=== PATIENT | female | born 1975 | race American Indian/Alaskan Native ===

== ENCOUNTER 2016-11-10 06:53 | Emergency (ER) | payer SELFPAY ==
[2016-11-10 07:29] VITALS: BP 128/96
[2016-11-10 07:46] LABS: Basophils % (Auto) 1.1 % (0.0-1.8); Eosinophils % (Auto) 2.2 % (0.0-4.3); Hematocrit 32.5 % (30.3-42.9); Hemoglobin 10.2 gm/dl (10.1-14.3); Mean Corpuscular HGB Conc 31 % (30-34); Platelet Count 290 K/mm3 (140-440); Red Blood Count 4.72 M/mm3 (3.65-5.03)
[2016-11-10 07:49] LABS: Mean Corpuscular Hemoglobin 22 pg (28-32); Mean Corpuscular Volume 69 fl (79-97); Red Cell Distribution Width 20.1 % (13.2-15.2)
[2016-11-10 08:02] LABS: Anion Gap 19 mmol/L; Blood Urea Nitrogen 10 mg/dL (7-17); Calcium 8.8 mg/dL (8.4-10.2); Carbon Dioxide 22 mmol/L (22-30); Chloride 102.6 mmol/L (98-107); Glucose 93 mg/dL (65-100); Potassium 3.4 mmol/L (3.6-5.0); Sodium 140 mmol/L (137-145)
[2016-11-10] MEDS ORDERED: MOTRIN PO ONE (10:28)
--- NOTE | 2016-11-10 10:29 | Emergency Department Report ---
ED Abdominal Pain HPI - General Chief Complaint: Abdominal Pain Stated Complaint: ABD PAIN/ERIKA Time Seen by Provider: 11/10/16 10:02 Source: patient Mode of arrival: Ambulatory Limitations: No Limitations - History of Present Illness Initial Comments: 40-year-old female with complaint of left lower quadrant abdominal pain started this morning. She has a history of urine fibroids. She just started her menstrual cycle today. She occasionally has pain with her cycles. Denies fevers chills or change in bowel habits. She is also complained of a "bronchitis" flareup. States this started while she was eating lunch yesterday. She is not having any cough fevers chills. -: Sudden Location: LLQ Radiation: none Migration to: no migration Severity: moderate Quality: sharp Improves With: nothing Worsens With: nothing Associated Symptoms: denies other symptoms. denies: nausea, vomiting, diarrhea , fever, chills, constipation, dysuria, hematemesis, melena - Related Data Previous Rx's Medication Instructions Recorded Last Taken Type Phenazopyridine [Pyridium] 100 mg PO TID #10 tab 11/10/16 Unknown Rx traMADol [Ultram 50 MG tab] 50 mg PO Q4HR PRN #14 tablet 11/10/16 Unknown Rx Allergies Allergy/AdvReac Type Severity Reaction Status Date / Time No Known Allergies Allergy Unverified 11/10/16 07:29 ED Review of Systems ROS: Stated complaint: ABD PAIN/ERIKA Other details as noted in HPI Comment: All other systems reviewed and negative Constitutional: denies: chills, fever Eyes: denies: eye pain, eye discharge, vision change ENT: denies: ear pain, throat pain Respiratory: denies: cough, shortness of breath, wheezing Cardiovascular: denies: chest pain, palpitations Endocrine: no symptoms reported Gastrointestinal: abdominal pain. denies: nausea, vomiting, diarrhea Genitourinary: denies: urgency, dysuria, discharge Musculoskeletal: denies: back pain, joint swelling, arthralgia Skin: denies: rash, lesions Neurological: denies: headache, weakness, paresthesias Psychiatric: denies: anxiety, depression Hematological/Lymphatic: denies: easy bleeding, easy bruising ED Past Medical Hx - Past Medical History Previous Medical History?: Yes Additional medical history: hx of bronchitis - Surgical History Past Surgical History?: Yes Additional Surgical History: fallopian tube removed, D&C - Family History Family history: no significant - Social History Smoking Status: Current Every Day Smoker Substance Use Type: None - Medications Home Medications: Home Medications Medication Instructions Recorded Confirmed Last Taken Type Phenazopyridine [Pyridium] 100 mg PO TID #10 tab 11/10/16 Unknown Rx traMADol [Ultram 50 MG tab] 50 mg PO Q4HR PRN #14 tablet 11/10/16 Unknown Rx ED Physical Exam - General Limitations: No Limitations General appearance: alert, in no apparent distress - Head Head exam: Present: atraumatic, normocephalic - Eye Eye exam: Present: normal appearance - ENT ENT exam: Present: mucous membranes moist - Neck Neck exam: Present: normal inspection - Respiratory Respiratory exam: Present: normal lung sounds bilaterally. Absent: respiratory distress - Cardiovascular Cardiovascular Exam: Present: regular rate, normal rhythm. Absent: systolic murmur, diastolic murmur, rubs, gallop - GI/Abdominal GI/Abdominal exam: Present: soft, tenderness (left lower quadrant), normal bowel sounds. Absent: guarding, rebound, rigid - Extremities Exam Extremities exam: Present: normal inspection - Back Exam Back exam: Present: normal inspection. Absent: CVA tenderness (R), CVA tenderness (L) - Neurological Exam Neurological exam: Present: alert, oriented X3 - Psychiatric Psychiatric exam: Present: normal affect, normal mood - Skin Skin exam: Present: warm, dry, intact, normal color. Absent: rash ED Course Vital Signs 11/10/16 11/10/16 11/10/16 07:23 10:21 10:34 Temperature 97.7 F Pulse Rate 102 H Respiratory 15 16 Rate Blood Pressure 128/96 O2 Sat by Pulse 99 Oximetry ED Medical Decision Making - Lab Data Result diagrams: 11/10/16 07:32 11/10/16 07:32 Laboratory Results - last 24 hr 11/10/16 11/10/16 07:32 07:32 WBC 9.0 RBC 4.72 Hgb 10.2 Hct 32.5 MCV 69 L MCH 22 L MCHC 31 RDW 20.1 H Plt Count 290 Lymph % (Auto) 11.2 L Bay % (Auto) 4.2 Eos % (Auto) 2.2 Baso % (Auto) 1.1 Lymph # 1.0 L Bay # 0.4 Eos # 0.2 Baso # 0.1 Seg Neutrophils % 81.3 H Seg Neutrophils # 7.3 Sodium 140 Potassium 3.4 L Chloride 102.6 Carbon Dioxide 22 Anion Gap 19 BUN 10 Creatinine 0.8 Estimated GFR > 60 BUN/Creatinine Ratio 12.50 Glucose 93 Calcium 8.8 Laboratory Results - last 24 hr 11/10/16 11/10/16 11/10/16 07:32 07:32 10:30 WBC 9.0 RBC 4.72 Hgb 10.2 Hct 32.5 MCV 69 L MCH 22 L MCHC 31 RDW 20.1 H Plt Count 290 Lymph % (Auto) 11.2 L Bay % (Auto) 4.2 Eos % (Auto) 2.2 Baso % (Auto) 1.1 Lymph # 1.0 L Bay # 0.4 Eos # 0.2 Baso # 0.1 Seg Neutrophils % 81.3 H Seg Neutrophils # 7.3 Sodium 140 Potassium 3.4 L Chloride 102.6 Carbon Dioxide 22 Anion Gap 19 BUN 10 Creatinine 0.8 Estimated GFR > 60 BUN/Creatinine Ratio 12.50 Glucose 93 Calcium 8.8 Urine Color Red Urine Turbidity Clear Urine pH 6.0 Ur Specific Tat[place] 1.025 Urine Protein 100 mg/dl Urine Glucose (UA) Neg Urine Ketones 20 Urine Blood Lg Urine Nitrite Neg Urine Bilirubin Neg Urine Urobilinogen < 2.0 Ur Leukocyte Esterase Neg Urine WBC (Auto) 60.0 H Urine RBC (Auto) > 182.0 U Epithel Cells (Auto) 19.0 H Hyaline Casts 2 Urine Mucus 2+ Urine HCG, Qual Negative - Medical Decision Making 40-year-old female presents to the emergency department with complaint of left upper quadrant pain for approximately 24 hours and a "bronchitis" flareup. She is no fevers chills nausea vomiting. She appears otherwise well. She is mildly tender left lower quadrant on clinical exam. She hasn't had any risk factors for diverticulitis. Plan labs UA urine if all negative plan to discharge. UA notable for multiple red and white blood cells. She has multiple epithelial cells in her urine. I do not suspect that this is urinary tract infection. Plan to discharge her home. Portions of this chart were dictated with dictation software. There may be dictation errors contained within this note. Critical care attestation.: If time is entered above; I have spent that time in minutes in the direct care of this critically ill patient, excluding procedure time. ED Disposition Clinical Impression: Abdominal pain Disposition: DC- TO HOME OR SELFCARE Is pt being admited?: No Condition: Stable Instructions: Abdominal Pain (ED) Prescriptions: Phenazopyridine [Pyridium] 100 mg PO TID #10 tab traMADol [Ultram 50 MG tab] 50 mg PO Q4HR PRN #14 tablet PRN Reason: Pain Referrals: PRIMARY CARE, [Primary Care Provider] - 3-5 Days
[2016-11-10 10:53] LABS: Bilirubin,Urine NEG (Negative); Blood,Urine LG (Negative); Ketones,Urine 20 mg/dL (Negative); Leukocyte Esterase,Urine NEG (Negative); Mucus,Urine 2+ /HPF; Nitrite,Urine NEG (Negative); Urobilinogen,Urine < 2.0 mg/dL (<2.0)
[2016-11-10 10:55] LABS: RBC,Urine > 182.0 /HPF (0.0-6.0)
== END 2016-11-10 12:25 | disposition home or self-care (01) ==
LOC: ED 06:53
DX: R10.32 Left lower quadrant pain (principal); F17.200 Nicotine dependence, unspecified, uncomplicated
CPT/HCPCS: 36415; 80048; 81001; 81025; 85025; 99283